=== PATIENT | female | born 1980 | race American Indian/Alaskan Native ===

== ENCOUNTER 2016-07-27 14:25 | Outpatient (CLI) | payer OTHER | END 2016-07-27 14:26 | disposition home or self-care (01) | LOC: LABHHL 14:25 | PROVIDERS: ATTEND Surgery | DX: N63 Unspecified lump in breast (principal) | CPT/HCPCS: 88305 ==

== ENCOUNTER 2016-08-15 05:58 | Day surgery (SDC) | payer OTHER ==
[2016-08-15] MEDS ORDERED: XYLOCAINE MPF 2% ONE (06:48)
[2016-08-15] MEDS ORDERED: DIPRIVAN 10 MG/ML IV ONE (06:51)
[2016-08-15] MEDS ORDERED: DILAUDID ONE (06:51)
[2016-08-15] MEDS ORDERED: NACL BACTERIOSTATIC INFILTRATI ONE (06:53)
--- NOTE | 2016-08-15 06:59 | Anesthesia Day of Surgery ---
Anesthesia Day of Surgery - Day of Surgery Patient Examined: Yes Patient H&P Reviewed: Yes Patient is NPO: Yes
[2016-08-15] MEDS ORDERED: NACL 0.9% 1000 ML 1,000 ML IV SCH (07:00)
--- NOTE | 2016-08-15 07:00 | Anesthesia Consultation ---
Anesthesia Consult and Med Hx Date of service: 08/15/16 - Airway Anesthetic Teeth Evaluation: Good ROM Head & Neck: Adequate Mental/Hyoid Distance: Adequate Mallampati Class: Class II Intubation Access Assessment: Probably Good - Pulmonary Exam CTA: Yes - Cardiac Exam Cardiac Exam: RRR - Pre-Operative Health Status ASA Pre-Surgery Classification: ASA2 Proposed Anesthetic Plan: General - Pulmonary Hx Smoking: No Hx Sleep Apnea: No - Central Nervous System Hx Psychiatric Problems: No - Endocrine Hx Non-Insulin Dependent Diabetes: Yes - Other Systems Hx Cancer: No
[2016-08-15] MEDS ORDERED: MARCAINE 0.25% INFILTRATI ONE (07:20)
[2016-08-15] MEDS ORDERED: XYLOCAINE 1% 20 mL ONE (07:20)
[2016-08-15] MEDS ORDERED: VERSED IV NR (07:30)
[2016-08-15] MEDS ORDERED: ZOFRAN IV PRN (07:30)
[2016-08-15] MEDS ORDERED: PEPCID PO NR (07:30)
[2016-08-15] MEDS ORDERED: ANCEF/STERILE WATER 2 GM/20 ML IV NR (07:30)
[2016-08-15] MEDS ORDERED: DILAUDID IV PRN (08:00)
[2016-08-15] MEDS ORDERED: SUBLIMAZE IV PRN (08:00)
[2016-08-15] MEDS ORDERED: ZOFRAN ONE (08:15)
[2016-08-15] MEDS ORDERED: DECADRON ONE (08:15)
--- NOTE | 2016-08-15 09:16 | Short Stay Summary ---
Short Stay Documentation Date of service: 08/15/16 - History H&P: obtained from office - Allergies and Medications Current Medications: Allergies No Known Allergies Allergy (Verified 08/15/16 06:31) Home Medications Medication Instructions Recorded Confirmed Last Taken Type metFORMIN [Glucophage] 500 mg PO BID 08/07/16 08/15/16 08/14/16 History Active Medications Cefazolin Sodium (Ancef/Sterile Water 2 Gm/20 Ml) 2 gm IV PREOP NR Stop: 08/15/16 19:00 Famotidine (Pepcid) 20 mg PO PREOP NR Stop: 08/15/16 19:00 Last Admin: 08/15/16 07:39 Dose: 20 mg Fentanyl (Sublimaze) 50 mcg IV Q5MIN PRN PRN Reason: Pain , Severe (7-10) Stop: 08/15/16 14:00 Hydromorphone HCl (Dilaudid) 0.25 mg IV Q10MIN PRN PRN Reason: Pain, Moderate (4-6) Stop: 08/15/16 14:30 Sodium Chloride (Nacl 0.9% 1000 Ml) 1,000 mls @ 100 mls/hr IV DIRECT KATHERINE Last Admin: 08/15/16 07:40 Dose: 100 mls/hr Midazolam HCl (Versed) 2 mg IV PREOP NR Stop: 08/15/16 19:00 Last Admin: 08/15/16 07:41 Dose: 2 mg Ondansetron HCl (Zofran) 4 mg IV ONCE PRN PRN Reason: Nausea And Vomiting Stop: 08/15/16 14:00 - Brief post op/procedure progress note Date of procedure: 08/15/16 Pre-op diagnosis: Left breast nodule of the SA Post-op diagnosis: other (Normal nipple, base of nipple) Procedure: Left breast exam under general anesthesia and left breast ultrasound Anesthesia: GETA Findings: Nipple uninverted with no SA nodule present; benign appearing breast lobule at the 12:00 position 1-2 cm from the nipple, left breast simple cyst at the 1:00 position 1 cm from the nipple Surgeon: RUTH GREENWOOD Estimated blood loss: minimal Pathology: none Condition: stable - Disposition Condition at discharge: Good Disposition: DISCHARGED TO HOME OR SELFCARE Short Stay Discharge Plan Activity: no restrictions Diet: regular Follow up with: HUGO WU MD [Primary Care Provider] - 7 Days RUTH GREENWOOD MD [Staff Physician] - 7 Days
--- NOTE | 2016-08-15 09:23 | Operative Report ---
Operative Report Operative Report: Date of procedure: 08/15/2016 Pre-operative diagnosis: Left breast nodule of the subareolar Post-operative diagnosis: Breast tissue of the subareolar Procedure name(s): Left breast exam under general anesthesia and limited breast ultrasound Surgeon: Joelle Crockett M.D. Anesthesia: Gen. Findings: No breast tissue noted of the subareolar Complications: None Disposition: PACU in good condition Indications for operative procedure: This is a 36-year-old premenopausal -[place] lady with recent abnormal outside ultrasound with findings of a 1 cm nodule 12 o'clock position of the subareolar. Biopsy was performed with benign breast tissue. Recommendations were for excision giving history of increasing size. Patient was noted to have inverted nipples. Procedure in detail: The patient was taken to the operating room and was laid supine. Gen. anesthesia was administered. The left breast was examined and the nipple was noted to be inverted that was uninverted and prior palpable nodule was not palpable. It was noted that the palpable nodule was palpation of the base of patient's nipple. Ultrasound was performed with findings of benign appearing breast lobule at the 12 o'clock position 1-2 cm from the nipple and simple cyst noted the 1 o'clock position 1 cm from the nipple. The nipple was left uninverted. This concluded the procedure and she was awakened from anesthesia without any complications and transferred to PACU in good condition.
[2016-08-15 10:11] VITALS: BP 139/92
--- NOTE | 2016-08-15 10:49 | Post Anesthesia Evaluation ---
- Post Anesthesia Evaluation Patient Participated: Yes Airway Patent: Yes Stable Respiratory Function: Yes Nausea/Vomiting: No Temp > 96.8F: Yes Pain Manageable: Yes Adequeate Hydration: Yes Anesthesia Complications: No Block Receding Appropriately: Not Applicable Patient on Ventilator: No
== END 2016-08-15 10:38 | disposition home or self-care (01) ==
LOC: OR 05:58
PROVIDERS: ATTEND Surgery
DX: N63 Unspecified lump in breast (principal); E11.9 Type 2 diabetes mellitus without complications; Z98.890 Other specified postprocedural states
CPT/HCPCS: 19120; 82962; J0690; J1100; J1170; J2250; J2405; J2704; J7030

== ENCOUNTER 2016-09-26 13:54 | Outpatient (CLI) | payer OTHER ==
--- NOTE | 2016-09-27 13:16 | Magnetic Resonance Report ---
BILATERAL BREAST MRI WITHOUT AND WITH CONTRAST: 09/26/16 13:54:00 CLINICAL: Status post biopsy of a left subareolar breast mass at 12 o'clock on 07/27/16. The pathology result describes benign breast tissue. She was then taken to surgery for a palpable left breast mass which turned out to be her inverted nipple. COMPARISON:07/16/16 bilateral mammogram.. TECHNIQUE: Axial 1.0-mm T1 without, axial high resolution 2.0-mm T2 and axial 1.0-mm dynamic Vibrant high-resolution postcontrast T1 fat saturation sequences on a 1.5 Mercedes magnet. The examination was performed with an 8 channel dedicated [place] breast coil. Post processing with CAD and subtraction was performed on an [employer] workstation. 20 cc of Multihance was injected without incident for the contrast portion of the exam. Consent was obtained prior to the administration of the contrast. FINDINGS: Right: Mild background parenchymal enhancement. No mass or suspicious enhancement. No suspicious lymph nodes. Left: Mild background parenchymal enhancement. No mass or suspicious enhancement. Artifact from a metal clip is identified at 5 o'clock 2 cm from the nipple and there is no abnormality at the clip. No suspicious lymph nodes. IMPRESSION: Negative study. Recommend routine mammographic screening. 1 -- Negative
== END 2016-09-26 13:55 | disposition home or self-care (01) ==
LOC: SPVIMAG 13:54
PROVIDERS: ATTEND Surgery
DX: N63 Unspecified lump in breast (principal); E11.9 Type 2 diabetes mellitus without complications
CPT/HCPCS: 0159T; A9577; C8908; 77059

== ENCOUNTER 2017-12-10 19:31 | Emergency (ER) | payer OTHER ==
[2017-12-10 20:24] VITALS: BP 146/96
--- NOTE | 2017-12-10 23:11 | XRay Report ---
FINAL REPORT PROCEDURE: XR KNEE 3V RT TECHNIQUE: Right knee, three views HISTORY: Pain and swelling COMPARISON: No prior studies are available for comparison. FINDINGS: No fracture or joint dislocation is seen. No joint effusion. No focal osseous lesions are seen. IMPRESSION: No acute abnormality is identified
--- NOTE | 2017-12-10 23:44 | Emergency Department Report ---
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 pain was 5/10 aching with minimal weightbearing x-ray of same as normal no fractures or soft tissue abnormality miraculously post x-ray all symptoms have resolved range of motion is intact including full knee extension patient is anicteric a steady without pain Complaint: knee injury Onset/Timin -: hour(s) Injury: Knee: Right Type of Injury: hyperextension Place: work Severity: moderate Severity scale (0 -10): 5 Improves With: rest Worsens With: weight bearing, movement, palpation Context: jumping Associated Symptoms: snap/pop sensation, able to partially bear weight - Related Data Home Medications Medication Instructions Recorded Confirmed Last Taken metFORMIN [Glucophage] 500 mg PO BID 08/07/16 08/15/16 08/14/16 Previous Rx's Medication Instructions Recorded Last Taken Type Cyclobenzaprine [Flexeril] 10 mg PO TID PRN #30 tablet 12/10/17 Unknown Rx Menthol/Camphor [[place] 1 applicatio TP TID PRN #1 tube 12/10/17 Unknown Rx Ointment] Naproxen 500 mg PO BID PRN #30 tablet 12/10/17 Unknown Rx Allergies Allergy/AdvReac Type Severity Reaction Status Date / Time No Known Allergies Allergy Verified 08/15/16 06:31 ED Review of Systems ROS: Stated complaint: KNEE INJURY Other details as noted in HPI Constitutional: denies: chills, fever Eyes: denies: eye pain, eye discharge, vision change ENT: denies: ear pain, throat pain Respiratory: denies: cough, shortness of breath, wheezing Cardiovascular: denies: chest pain, palpitations Endocrine: no symptoms reported Gastrointestinal: denies: abdominal pain, nausea, diarrhea Genitourinary: denies: urgency, dysuria, discharge Musculoskeletal: joint swelling, myalgia Skin: denies: rash, lesions Neurological: denies: headache, weakness, paresthesias Psychiatric: denies: anxiety, depression Hematological/Lymphatic: denies: easy bleeding, easy bruising ED Past Medical Hx - Past Medical History Previous Medical History?: Yes Hx Diabetes: Yes ("prediabetic" on metformin) Hx HIV: No - Surgical History Past Surgical History?: Yes Additional Surgical History: ectopic and - Social History Smoking Status: Never Smoker Substance Use Type: None - Medications Home Medications: Home Medications Medication Instructions Recorded Confirmed Last Taken Type metFORMIN [Glucophage] 500 mg PO BID 08/07/16 08/15/16 08/14/16 History Cyclobenzaprine [Flexeril] 10 mg PO TID PRN #30 tablet 12/10/17 Unknown Rx Menthol/Camphor [[place] 1 applicatio TP TID PRN #1 tube 12/10/17 Unknown Rx Ointment] Naproxen 500 mg PO BID PRN #30 tablet 12/10/17 Unknown Rx ED Physical Exam - General Limitations: Physical Limitation General appearance: alert, in no apparent distress - Head Head exam: Present: atraumatic, normocephalic - Eye Eye exam: Present: normal appearance - ENT ENT exam: Present: mucous membranes moist - Neck Neck exam: Present: normal inspection - Respiratory Respiratory exam: Present: normal lung sounds bilaterally. Absent: respiratory distress - Cardiovascular Cardiovascular Exam: Present: regular rate, normal rhythm. Absent: systolic murmur, diastolic murmur, rubs, gallop - GI/Abdominal GI/Abdominal exam: Present: soft, normal bowel sounds - Rectal Rectal exam: Present: deferred - Extremities Exam Extremities exam: Present: normal inspection, full ROM, tenderness (mild right lateral knee pain ), joint swelling. Absent: normal capillary refill, calf tenderness - Expanded Lower Extremity Exam Right Knee exam: Present: normal inspection, full ROM, tenderness (mild right lateral knee tenderness ), full knee extension. Absent: swelling, abrasion, laceration , ecchymosis, deformity, crepidus, dislocation Lower Leg exam: Present: normal inspection, full ROM Ankle exam: Present: normal inspection, full ROM Foot/Toe exam: Present: normal inspection, full ROM Neuro vascular tendon exam: Present: no vascular compromise (review of directly from the). Absent: foot drop - Back Exam Back exam: Present: normal inspection - Neurological Exam Neurological exam: Present: alert, oriented X3 - Psychiatric Psychiatric exam: Present: normal affect - Skin Skin exam: Present: warm, dry, intact, normal color. Absent: rash ED Course Vital Signs 12/10/17 12/10/17 19:52 20:19 Temperature 98.6 F 98.6 F Pulse Rate 68 68 Respiratory 16 16 Rate Blood Pressure 146/96 146/96 O2 Sat by Pulse 99 99 Oximetry ED Lower Extremity MDM - Radiology Data Radiology results: report reviewed, image reviewed No fracture no soft tissue abnormality - Medical Decision Making Examination this is a knee strain symptoms have resolved, there is no swelling no ecchymosis no deformith no drawer, plan: nsaids muscle relaxants cryotherapy , pt will follow up with pcp in 2-3 days pt verbalized agreemenet and under standing of discharge plan. Critical care attestation.: If time is entered above; I have spent that time in minutes in the direct care of this critically ill patient, excluding procedure time. ED Disposition Clinical Impression: Strain of right knee Qualifiers: Encounter type: initial encounter Qualified Code(s): S86.911A - Strain of unspecified muscle(s) and tendon(s) at lower leg level, right leg, initial encounter Disposition: TO HOME OR SELFCARE Is pt being admited?: No Does the pt Need Aspirin: No Condition: Stable Instructions: Knee Pain (ED), Knee Exercises (GEN) Prescriptions: Cyclobenzaprine [Flexeril] 10 mg PO TID PRN #30 tablet PRN Reason: Muscle Spasm Menthol/Camphor [[place] Ointment] 1 applicatio TP TID PRN #1 tube PRN Reason: pain Naproxen 500 mg PO BID PRN #30 tablet PRN Reason: pain Referrals: PRIMARY CARE, [Primary Care Provider] - 3-5 Days Forms: Work/School Release Form(ED) Time of Disposition: 23:51
== END 2017-12-10 23:57 | disposition home or self-care (01) ==
LOC: ED 19:31
DX: S86.911A Strain of unspecified muscle(s) and tendon(s) at lower leg level, right leg, initial encounter (principal); X58.XXXA Exposure to other specified factors, initial encounter; Y93.89 Activity, other specified; Y92.69 Other specified industrial and construction area as the place of occurrence of the external cause; Y99.8 Other external cause status
CPT/HCPCS: 99283